=== PATIENT | female | born 1980 | race Caucasian/White ===

== ENCOUNTER 2022-02-26 18:41 | Emergency (ER) | payer OTHER, SELFPAY ==
[2022-02-26 18:54] VITALS: BP 138/84; PULSE 81; RESP 18; TEMP 37.1; O2SAT 97; BMI 24.0
[2022-02-26 19:00] VITALS: BP 128/84; PULSE 83; RESP 18; O2SAT 97
[2022-02-26 19:30] VITALS: BP 121/90; PULSE 73; RESP 18; O2SAT 97
--- NOTE | 2022-02-26 19:32 | ED.CHESTPAIN ---
HPI - Chest Pain General Chief Complaint: Chest Pain Stated Complaint: Chest pain Time Seen by Provider: 02/26/22 18:46 History of Present Illness HPI narrative: This 42-year-old female comes in reporting some chest heaviness and discomfort that is been present daily over the past 3 weeks or so. She states that she feels pretty good in the morning but as the day wears on each day she has some increased heaviness diffusely in her chest. There is also some chest pain that is mild to moderate. She does not report any exercise intolerance. She does not have any nausea, vomiting, lightheadedness, or diaphoresis. She states that she feels a bit winded at times when doing exertional things. She is taking amlodipine for blood pressure but has no other cardiac risk factors. She did have a mammogram just before these symptoms started and states that it was uncomfortable additionally because she has implants. She wonders if something may have happened in this regard. She does not report any fevers. She does not have any history of blood clot, unilateral leg pain or swelling. Related Data Previous Rx's Medication Instructions Recorded ketorolac 10 mg tablet 10 mg PO Q8H 5 days #15 tabs 02/26/22 Allergies Allergy/AdvReac Type Severity Reaction Status Date / Time No Known Drug Allergies Allergy Verified 02/26/22 18:54 Review of Systems Status of ROS Reports: 10 or more systems reviewed and unremarkable except as noted in History and below Narrative Constitutional: No fevers, no weight gain or loss. Eyes: No discharge. No vision changes. HENT: No congestion, no sore throat, no ear pain. Cardiovascular: No palpitations. Chest discomfort as described above. Respiratory: No shortness of breath, no wheezes, no cough. Gastrointestinal: No abdominal pain, no vomiting, no diarrhea. Genitourinary: No dysuria, no hematuria. Musculoskeletal: Normal range of motion. Skin: No rashes, no pruritis. Neurological: No dizziness, weakness, sensory change, speech change. Endo/Heme/Allergies: No bruising or bleeding. No polydipsia. Pysch: no suicidality, no anxiety, no insomnia. All other systems reviewed and are negative. Exam Narrative Exam Narrative: Constitutional: Well-developed, well-nourished, no acute distress. HEENT: Normocephalic, atraumatic. Neck: Normal range of motion. Nontender. Supple. Heart: Regular. No murmurs. Normal rate. Intact distal pulses. Lungs: Clear to auscultation. No reproducible chest discomfort. No wheezes, rhonchi, or rales. Abdomen: Normal bowel sounds. Nontender. No rebound tenderness. Genitalia: Deferred. Back: No midline tenderness. Normal range of motion. Extremities: Normal range of motion. No injury. Skin: Intact. No rash. Warm. No erythema or pallor. Neurologic: No altered sensation. No weakness. Alert and oriented. Psychiatric: No suicidality. No anxiety or depression. No insomnia. Nursing notes and vitals signs are reviewed. Const Vital Signs, click to edit/add: Vital Signs - 24 hr 02/26/22 18:54 Temperature 98.8 F Pulse Rate [Pulse Oximeter] 81 Respiratory Rate 18 Blood Pressure [Left Upper Arm] 138/84 Pulse Oximetry 97 Oxygen Delivery Method Room Air Course Vital Signs Vital signs: Initial Vital Signs Temperature 98.8 F 02/26/22 18:54 Temperature Source Temporal Artery Scan 02/26/22 18:54 Pulse Rate 81 02/26/22 18:54 Pulse Rhythm 02/26/22 18:54 Respiratory Rate 18 02/26/22 18:54 Blood Pressure 138/84 02/26/22 18:54 Blood Pressure Mean 102 02/26/22 18:54 Pulse Oximetry 97 02/26/22 18:54 Oxygen Delivery Method 02/26/22 18:54 Vital Signs Temperature 98.8 F 02/26/22 18:54 Pulse Rate 81 02/26/22 18:54 Respiratory Rate 18 02/26/22 18:54 Blood Pressure 138/84 02/26/22 18:54 Pulse Oximetry 97 02/26/22 18:54 Oxygen Delivery Method 02/26/22 18:54 Temperature 98.8 F 02/26/22 18:54 Pulse Rate 81 02/26/22 18:54 Respiratory Rate 18 02/26/22 18:54 Blood Pressure 138/84 02/26/22 18:54 Pulse Oximetry 97 02/26/22 18:54 Oxygen Delivery Method 02/26/22 18:54 MDM - Chest Pain MDM Narrative Medical decision making narrative: This patient comes in reporting some chest heaviness and discomfort that seems to be worse as the day goes on. This is been present for 3 weeks and occurred a day or 2 after having a mammogram. I did check an EKG and labs which returned with normal results. Her pain is reproducible when palpating on the lateral aspect of her left breast implant. I also looked with ultrasound and saw normal anatomy and a breast implant which appeared to be intact. Most likely this person's pain is chest wall pain and related to that mammogram. These findings were reassuring to her. She received a prescription for Toradol and was advised regarding the likelihood that this discomfort can continue yet for few weeks even. I did also describe signs or symptoms that would indicate a need for return and re-evaluation. Lab Data Labs: Lab Results 02/26/22 02/26/22 02/26/22 Range/Units 19:48 19:48 19:48 WBC 10.10 (4.50-11.00) K/uL RBC 4.59 (4.00-5.20) m/uL Hgb 13.2 (12.0-16.0) gm/dL Hct 38.9 (33.0-51.0) % MCV 85 (80-100) fL MCH 29 (26-34) pg MCHC 34 (32-36) gm/dL RDW Coeff of Brendon 12.2 (11.5-15.5) % Plt Count 315 (140-440) K/uL Neut % (Auto) 66.6 (42.0-72.0) % Lymph % (Auto) 26.9 (20-44) % [place] % (Auto) 5.7 (0.0-11.0) % Eos % (Auto) 0.0 (0.0-7.0) % Baso % (Auto) 0.6 (0.0-3.0) % Neut # (Auto) 6.72 (1.7-7.0) K/uL Lymph # (Auto) 2.72 (0.90-2.90) K/uL [place] # (Auto) 0.60 (0.00-0.90) K/UL Eos # (Auto) 0.00 (0.00-0.50) K/uL Baso # (Auto) 0.06 (0.00-0.30) K/uL Abs Immat Gran (auto) 0.02 (0.00-0.30) K/uL Sodium 136 (135-149) mmol/L Potassium 4.8 (3.6-5.1) mmol/L Chloride 103 (96-114) mmol/L Carbon Dioxide 24 (20-32) mmol/L BUN 21 (5-24) mg/dL Creatinine 1.0 (0.5-1.5) mg/dL Estimated Creat Clear 61.99 Estimated GFR 71 ml/min Glucose 103 (60-115) mg/dL Calcium 9.1 (8.4-10.6) mg/dL POC Troponin I 0.00 L (0.01-0.04) ng/ml ECG Data Attestation: I personally reviewed and interpreted this ECG as follows: Interpretation: Normal sinus rhythm. Rate is 74 beats per minute. There are no specific ST or T-wave abnormalities. Discharge Plan Discharge Clinical Impression: Chest wall pain Patient Disposition: Home, Self-Care Condition: Stable Instructions: Chest Pain (ED) Additional Instructions: Activity as tolerated. Take medication as needed and indicated. Follow up with MD or return if worsening. Prescriptions: New ketorolac 10 mg tablet 10 mg PO Q8H 5 Days Qty: 15 0RF Stand Alone Forms: [facility] Info Instructions Procedures Ultrasound Other exam #1: Anatomical areas examined: Heart, lungs, and left breast implant. Indications: Chest pain. Exam type: focused emergency ultrasound Description/findings: Normal appearing heart function. No wall motion abnormality. Lungs appear normal with no sign of pneumothorax. Left breast implant appears intact without extravasation. Impression: Chest wall pain related to recent mammogram and compression of breast and implant.
[2022-02-26 19:58] LABS: Basophils Absolute Auto 0.06 K/uL (0.00-0.30); Basophils Percent Auto 0.6 % (0.0-3.0); Hematocrit 38.9 % (33.0-51.0); Hemoglobin* 13.2 gm/dL (12.0-16.0); Immature Granulocytes Abs Auto 0.02 K/uL (0.00-0.30); Lymphocytes Absolute Auto 2.72 K/uL (0.90-2.90); Lymphocytes Percent Auto 26.9 % (20-44); Mean Corpuscular HGB Conc 34 gm/dL (32-36); Mean Corpuscular Hemoglobin 29 pg (26-34); Mean Corpuscular Volume 85 fL (80-100); Monocytes Percent Auto 5.7 % (0.0-11.0); Neutrophils Absolute Auto 6.72 K/uL (1.7-7.0); Neutrophils Percent Auto 66.6 % (42.0-72.0); Platelet Count* 315 K/uL (140-440); RDW Coefficient of Variation % 12.2 % (11.5-15.5); Red Blood Count 4.59 m/uL (4.00-5.20)
[2022-02-26 20:00] VITALS: BP 135/94; PULSE 83; RESP 18; O2SAT 97
[2022-02-26 20:07] LABS: Chloride* 103 mmol/L (96-114)
[2022-02-26 20:08] LABS: Potassium* 4.8 mmol/L (3.6-5.1); Sodium* 136 mmol/L (135-149)
[2022-02-26 20:10] LABS: Est. Creatinine Clearance* 61.99; Estimated Glomerular Filt Rate 71 ml/min; Slide Review Reflex No
[2022-02-26 20:11] LABS: Blood Urea Nitrogen* 21 mg/dL (5-24); Calcium* 9.1 mg/dL (8.4-10.6); Carbon Dioxide* 24 mmol/L (20-32); Glucose* 103 mg/dL (60-115)
== END 2022-02-26 20:29 | disposition home or self-care (01) ==
LOC: ED 20:23
PROVIDERS: Emergency Provider Emergency Medicine Emergency Medical Services; PCP Family Medicine
DX: R07.89 Other chest pain (principal)
CPT/HCPCS: 36415; 80048; 84484; 85025; 93005; 99284